=== PATIENT | male | born 1950 | race Caucasian/White ===

== ENCOUNTER 2018-09-02 01:13 | Outpatient (CLI) | payer MEDICARE, SELFPAY ==
[2018-09-02 12:32] LABS: Hemoglobin A1C 6.1 % (4.5-6.2)
== END 2018-09-02 01:33 ==
PROVIDERS: PCP Family Medicine; Visit Provider Family Medicine
DX: E11.9 Type 2 diabetes mellitus without complications (principal)
CPT/HCPCS: 83036

== ENCOUNTER 2019-03-03 02:00 | Outpatient (CLI) | payer MEDICARE, SELFPAY ==
[2019-03-03 11:05] LABS: CREATININE 0.98 mg/dL (0.70-1.30)
[2019-03-03 11:18] LABS: Hemoglobin A1C 6.7 % (4.5-6.2)
[2019-03-04 12:07] LABS: PSA, Screening 2.4 ng/ml (0-4.5)
== END 2019-03-03 02:20 ==
PROVIDERS: PCP Family Medicine; Visit Provider Family Medicine
DX: E11.9 Type 2 diabetes mellitus without complications (principal); N40.1 Benign prostatic hyperplasia with lower urinary tract symptoms; Z12.5 Encounter for screening for malignant neoplasm of prostate; N13.8 Other obstructive and reflux uropathy
CPT/HCPCS: 84153; 82565; 83036

== ENCOUNTER 2019-09-01 02:22 | Outpatient (CLI) | payer MEDICARE, SELFPAY ==
[2019-09-01 12:08] LABS: Hemoglobin A1C 8.1 % (4.5-6.2)
== END 2019-09-01 02:42 ==
PROVIDERS: PCP Family Medicine; Visit Provider Family Medicine
DX: E11.9 Type 2 diabetes mellitus without complications (principal)
CPT/HCPCS: 36415; 83036

== ENCOUNTER 2019-09-11 09:51 | Outpatient (CLI) | payer MEDICARE, SELFPAY ==
[2019-09-11 12:49] LABS: Calculated LDL 172 mg/dL; Cholesterol 246 mg/dL (<200); HDL Cholesterol 33 mg/dL (40-60); Magnesium 1.7 mg/dL (1.8-2.4); Potassium 4.4 mmol/L (3.5-5.1); Triglyceride 206 mg/dL (<150)
[2019-09-11 13:02] LABS: COMMENT (LAB VIEW ONLY) 173.91 mg/dL
[2019-09-11 13:12] LABS: Microalb ug/mg Crea 8.8 ug/mg Cr
== END 2019-09-11 10:11 ==
PROVIDERS: PCP Family Medicine; Visit Provider Family Medicine
DX: I10 Essential (primary) hypertension (principal); E11.9 Type 2 diabetes mellitus without complications; K21.9 Gastro-esophageal reflux disease without esophagitis
CPT/HCPCS: 36415; 80061; 82043; 82570; 83735; 84132

== ENCOUNTER 2019-12-10 02:25 | Outpatient (CLI) | payer MEDICARE, SELFPAY ==
[2019-12-10 11:14] LABS: Hemoglobin A1C 6.7 % (3.8-5.6)
== END 2019-12-10 02:45 ==
PROVIDERS: PCP Family Medicine; Visit Provider Family Medicine
DX: E11.9 Type 2 diabetes mellitus without complications (principal)
CPT/HCPCS: 36415; 83036

== ENCOUNTER 2021-03-08 01:26 | Outpatient (CLI) | payer MEDICARE, SELFPAY ==
--- NOTE | 2021-03-08 07:15 | DI.RAD_ITS ---
Exam(s) XR HIP PELVIS ADULT BL EXAM: XR HIP PELVIS ADULT BL CLINICAL HISTORY: hip pain and low back pain, M25.551, M25.552. TECHNIQUE: 2D digital imaging was performed. COMPARISON: No exams were available for comparison FINDINGS: Examination is limited due to patient body habitus. Sfzl-fc-jubjhyjk degenerative changes are seen in the hips bilaterally with joint space narrowing and acetabular spurring. No acute fracture, dislocation or lytic or sclerotic lesion is seen. The sacr oiliac joints and symphysis pubis are unremarkable. There are degenerative changes seen in the lumbo sacral spine. Soft tissues are unremarkable. IMPRESSION: Osteoarthritis of the hips bilaterally. DATA REPOSITORY: RADIATION DOSE DELIVERED:
--- NOTE | 2021-03-08 07:15 | DI.RAD_ITS ---
Exam(s) XR LUMBAR SPINE COMPLETE EXAM: XR LUMBAR SPINE COMPLETE CLINICAL HISTORY: low back pain, M54.9. TECHNIQUE: 2D digital imaging was performed. COMPARISON: No exams were available for comparison FINDINGS: There are 5 lumbar type vertebral bodies. There is normal alignment. No spondylolysis or spondyloli sthesis. Disc space narrowing is seen at T12-L1 and L4-L5. Endplate osteophytes are seen at multipl e levels of the lumbar spine. There are degenerative changes of the facets seen at L4-5 and L5-S1. No acute fracture or subluxation is seen. Atherosclerosis is present. IMPRESSION: Moderate degenerative changes in the lumbar spine. DATA REPOSITORY: RADIATION DOSE DELIVERED:
== END 2021-03-08 01:46 ==
PROVIDERS: PCP Family Medicine; Visit Provider Family Medicine
DX: M54.5 Low back pain (principal); M51.36 Other intervertebral disc degeneration, lumbar region; M47.816 Spondylosis without myelopathy or radiculopathy, lumbar region; M25.551 Pain in right hip; M25.552 Pain in left hip
CPT/HCPCS: 73521; 72110

== ENCOUNTER 2021-08-04 10:49 | Outpatient (CLI) | payer MEDICARE, SELFPAY ==
[2021-08-04 20:20] LABS: COVID-19 RT-PCR UVMMC Result Negative (Negative)
== END 2021-08-04 10:50 | disposition home or self-care (01) ==
LOC: LBO 10:51
PROVIDERS: PCP Family Medicine; Visit Provider Nurse Practitioner Family
DX: Z20.822 Contact with and (suspected) exposure to COVID-19 (principal)
CPT/HCPCS: U0003; U0005

== ENCOUNTER 2021-08-17 17:05 | Outpatient (REF) | payer MEDICARE, SELFPAY | END 2021-08-17 17:06 | disposition home or self-care (01) | LOC: LBN 17:05 | PROVIDERS: PCP Family Medicine; Visit Provider Emergency Medicine | DX: N39.0 Urinary tract infection, site not specified (principal); N40.0 Benign prostatic hyperplasia without lower urinary tract symptoms | CPT/HCPCS: 87086 ==

== ENCOUNTER 2021-08-21 16:47 | Outpatient (REF) | payer MEDICARE, SELFPAY | END 2021-08-21 16:48 | disposition home or self-care (01) | LOC: NCHCN 16:47 | PROVIDERS: PCP Family Medicine; Visit Provider Family Medicine | DX: R19.7 Diarrhea, unspecified (principal) | CPT/HCPCS: 87169 ==

== ENCOUNTER 2021-09-01 04:22 | Outpatient (CLI) | payer MEDICARE, SELFPAY ==
[2021-09-01 13:05] LABS: Hemoglobin A1C 6.5 % (<5.7)
[2021-09-01 22:45] LABS: PSA, Diagnostic 2.9 ng/mL (0.0-6.5)
== END 2021-09-01 04:23 | disposition home or self-care (01) ==
LOC: LOS 04:22
PROVIDERS: Emergency Medicine; PCP Family Medicine; Visit Provider Family Medicine
DX: E11.9 Type 2 diabetes mellitus without complications; C61 Malignant neoplasm of prostate; I10 Essential (primary) hypertension
CPT/HCPCS: 36415; 82565; 83036; 84153

== ENCOUNTER → 2021-10-24 10:46 | Outpatient (BNVA) | payer MEDICARE, SELFPAY | PROVIDERS: PCP Family Medicine; Referring Provider Family Medicine; Visit Provider Nurse Practitioner Gerontology | DX: N40.1 Benign prostatic hyperplasia with lower urinary tract symptoms (principal); N13.8 Other obstructive and reflux uropathy; E11.9 Type 2 diabetes mellitus without complications; I10 Essential (primary) hypertension | CPT/HCPCS: 99204 ==

== ENCOUNTER → 2022-03-23 00:35 | Outpatient (CLI) | payer MEDICARE, SELFPAY ==
--- NOTE | 2022-03-23 07:11 | DI.MRI_ITS ---
Exam(s) MR LUMBAR SPINE WO EXAM: MR LUMBAR SPINE WO CLINICAL HISTORY: chronic low back pain,m54.50,g89.29. TECHNIQUE: Multiplanar multisequence MRI of the Lumbar spine was performed. COMPARISON: CR XR LUMBAR SPINE COMPLETE from 03/08/2021 FINDINGS: Bones: The last intervertebral disc space is designated the L5/S1 level for the numbering purpose of this examination. The vertebral body heights are well maintained. Alignment is satisfactory. The si gnal characteristics are unremarkable. Cord: The conus tip ends at the T12 level. It is of normal size and signal intensity. T12-L1: No disc herniations or bulges are present. No central spinal canal or neural foraminal stenos is. L1-2: There is a mild diffuse disc bulge. No significant central spinal canal stenosis is seen. There is mild bilateral narrowing of the neural foramen. L2-3: No disc herniations or bulges are present. No central spinal canal or neural foraminal stenosis . L3-4: There is a mild diffuse disc bulge. There are degenerative changes of the facets. No significan t central spinal canal stenosis is seen. Mild narrowing of the neural foramen is seen. L4-5: There is a mild diffuse disc bulge. There are hypertrophic changes of the facets. No significan t central spinal canal stenosis is present. There is mild bilateral neural foraminal stenosis. L5-S1: No disc herniations or bulges are present. There are mild degenerative changes of the facets.N o significant central spinal canal or neural foraminal stenosis is present. Soft tissues: The visualized SI joints and sacrum are well maintained. The paraspinal soft tissues ar e unremarkable. IMPRESSION: Multilevel degenerative changes in the lumbar spine. Mild narrowing of the neural foramen at multiple levels as described above. DATA REPOSITORY:
== END ==
PROVIDERS: PCP Family Medicine; Visit Provider Family Medicine
DX: M47.816 Spondylosis without myelopathy or radiculopathy, lumbar region (principal); M48.061 Spinal stenosis, lumbar region without neurogenic claudication; G89.29 Other chronic pain
CPT/HCPCS: 72148

== ENCOUNTER 2022-03-28 11:38 | Outpatient (CLI) | payer MEDICARE, SELFPAY ==
--- NOTE | 2022-03-28 09:30 | DI.RAD_ITS ---
Exam(s) XR SHOULDER LT COMPLETE 2+V EXAM: XR SHOULDER LT COMPLETE 2+V CLINICAL HISTORY: left shoulder pain TECHNIQUE: COMPARISON: CR XR SHOULDER RT COMPLETE 2+V from 03/28/2022 FINDINGS: Two views were obtained. There appears to be mild narrowing of cartilaginous joint space of the aris ohumeral joint. Mild marginal osteophyte formation noted associated with this joint. Moderate hyper trophic changes at the AC joint. No other significant bony or soft tissue abnormality seen. IMPRESSION: RADIATION DOSE DELIVERED: Total DLP
--- NOTE | 2022-03-28 09:30 | DI.RAD_ITS ---
Exam(s) XR SHOULDER RT COMPLETE 2+V EXAM: XR SHOULDER RT COMPLETE 2+V CLINICAL HISTORY: right shoulder pain TECHNIQUE: COMPARISON: No exams were available for comparison FINDINGS: Two views were obtained. There appears to be mild narrowing of the cartilaginous joint space of the glenohumeral joint. Mild marginal osteophytes noted involving the glenohumeral joint and moderate hy pertrophic changes noted at the AC joint. There is amorphous soft tissue calcification adjacent to insertion of supraspinatus tendon on the hum erus, consistent with a calcific peritendinitis. No other bony or soft tissue abnormality seen. IMPRESSION: RADIATION DOSE DELIVERED: Total DLP
== END 2022-03-28 11:39 | disposition home or self-care (01) ==
LOC: DIORS 11:38
PROVIDERS: PCP Family Medicine; Referring Provider Family Medicine; Visit Provider Student in an Organized Health Care Education/Training Program
DX: M75.51 Bursitis of right shoulder; M75.31 Calcific tendinitis of right shoulder; M75.52 Bursitis of left shoulder; M19.011 Primary osteoarthritis, right shoulder; M19.012 Primary osteoarthritis, left shoulder
CPT/HCPCS: 20610; 99204; 99214; 73030; J1030

== ENCOUNTER → 2022-04-16 12:52 | Outpatient (BNVA) | payer MEDICARE, SELFPAY | PROVIDERS: PCP Family Medicine; Referring Provider Family Medicine; Visit Provider Student in an Organized Health Care Education/Training Program | DX: M70.61 Trochanteric bursitis, right hip (principal); M70.62 Trochanteric bursitis, left hip | CPT/HCPCS: 99214 ==

== ENCOUNTER → 2022-06-18 09:33 | Outpatient (BNVA) | payer MEDICARE, SELFPAY | PROVIDERS: PCP Family Medicine; Referring Provider Family Medicine; Visit Provider Student in an Organized Health Care Education/Training Program | DX: M70.61 Trochanteric bursitis, right hip (principal); M70.62 Trochanteric bursitis, left hip; M16.12 Unilateral primary osteoarthritis, left hip | CPT/HCPCS: 99214 ==

== ENCOUNTER 2022-07-17 03:42 | Outpatient (CLI) | payer MEDICARE, SELFPAY ==
[2022-07-17 12:12] LABS: HCT 43.1 % (40.0-50.0); HGB 15.1 g/dL (13.5-17.5); MCH 29.3 pg (27.0-33.0); MCV 84 fL (80-95); MPV 9.9 fL (8.0-11.0); Platelet Count 213 10^3/uL (130-400); RBC 5.15 10^6/uL (4.36-5.78); RDW 12.3 % (11.8-14.1); WBC 10.21 10^3/uL (4.4-10.8)
[2022-07-17 12:21] LABS: Anion Gap 8.1 mmol/L (3-11); BUN 20 mg/dL (7-18); CO2 26.9 mmol/L (21.0-32.0); Calcium 9.5 mg/dL (8.5-10.1); Chloride 104 mmol/L (98-107); Estimated GFR 80.97 (mL/min/1.73m2); Glucose 181 mg/dL (74-106); Sodium 139 mmol/L (136-145)
[2022-07-18 10:43] LABS: Lyme Ab w Rflx to Lyme Confirm Negative (Negative)
[2022-07-19 21:27] LABS: Anaplasma phagocytophilum Negative (Negative); B. miyamotoi PCR Negative (Negative); Babesia divergens/MO-1 Negative (Negative); Babesia duncani Negative (Negative); Babesia microti Negative (Negative); Ehrlichia chaffeensis Negative (Negative); Ehrlichia ewingii/canis Negative (Negative); Ehrlichia muris eauclairensis Negative (Negative)
== END 2022-07-17 03:43 | disposition home or self-care (01) ==
LOC: LOS 03:42
PROVIDERS: PCP Family Medicine; Visit Provider Family Medicine
DX: I10 Essential (primary) hypertension (principal); R53.83 Other fatigue; W57.XXXA Bitten or stung by nonvenomous insect and other nonvenomous arthropods, initial encounter; T14.8XXA Other injury of unspecified body region, initial encounter
CPT/HCPCS: 36415; 80048; 85027; 87798; 86618

== ENCOUNTER 2022-09-25 08:59 | Outpatient (CLI) | payer MEDICARE, SELFPAY ==
[2022-09-25 13:24] LABS: ALT 30 U/L (16-63); AST 21 U/L (15-37); Albumin 3.7 g/dL (3.4-5.0); Alkaline Phosphatase 122 U/L (46-116); Bilirubin, Total 0.3 mg/dL (0.2-1.0); Calculated LDL 120 mg/dL (<100); Cholesterol 202 mg/dL (<200); HDL Cholesterol 46 mg/dL (40-60); Total Protein 7.2 g/dL (6.4-8.2); Triglyceride 180 mg/dL (<150)
[2022-09-25 13:33] LABS: Bilirubin, Direct 0.1 mg/dL (0.0-0.2)
== END 2022-09-25 09:00 | disposition home or self-care (01) ==
LOC: LOS 08:59
PROVIDERS: Absent Provider Family Medicine; PCP Family Medicine; Visit Provider Family Medicine
DX: E78.5 Hyperlipidemia, unspecified (principal); G72.89 Other specified myopathies
CPT/HCPCS: 36415; 80061; 80076

== ENCOUNTER 2022-11-07 13:24 | Outpatient (CLI) | payer MEDICARE, SELFPAY ==
--- NOTE | 2022-11-07 11:15 | DI.RAD_ITS ---
Exam(s) XR KNEE LT 3V AP,LAT,PADDY EXAM: XR KNEE LT 3V AP,LAT,PADDY CLINICAL HISTORY: left knee pain, M25.562. TECHNIQUE: 2D digital imaging was performed of the left knee. Three images were obtained. AP, late ral and PA tunnel views were obtained. COMPARISON: No exams were available for comparison FINDINGS: BONES: No acute fracture is present. No bony destructive lesion is seen. There is a small enthesophy te at the superior patella. JOINTS: The knee is normally aligned. There is a small joint effusion. There is moderate narrowing i n the medial femoral tibial joint. Periarticular spurring is seen involving the medial femoral tibia l and patellofemoral joint. Subchondral cysts are seen in the medial femoral tibial joint. SOFT TISSUE: Atherosclerosis is present. IMPRESSION: Osteoarthritis of the knee. DATA REPOSITORY: RADIATION DOSE DELIVERED:
== END 2022-11-07 13:44 ==
LOC: DI 13:24
PROVIDERS: PCP Family Medicine; Visit Provider Family Medicine
DX: M17.12 Unilateral primary osteoarthritis, left knee (principal)
CPT/HCPCS: 73562

== ENCOUNTER 2022-12-26 13:19 | Outpatient (REF) | payer MEDICARE, SELFPAY ==
[2022-12-26 14:21] LABS: COMMENT (LAB VIEW ONLY) 152.56 mg/dL; Microalb ug/mg Crea 17.7 ug/mg Cr
== END 2022-12-26 13:20 | disposition home or self-care (01) ==
LOC: LBN 13:19
PROVIDERS: PCP Family Medicine; Visit Provider Family Medicine
DX: E11.9 Type 2 diabetes mellitus without complications (principal)
CPT/HCPCS: 82043; 82570

== ENCOUNTER → 2022-12-31 10:12 | Outpatient (BNVA) | payer MEDICARE, SELFPAY | PROVIDERS: PCP Family Medicine; Referring Provider Family Medicine; Visit Provider Student in an Organized Health Care Education/Training Program | DX: M17.12 Unilateral primary osteoarthritis, left knee (principal) | CPT/HCPCS: 99213 ==

== ENCOUNTER 2023-01-01 01:11 | Outpatient (CLI) | payer MEDICARE, SELFPAY ==
--- NOTE | 2023-01-01 07:00 | DI.NM_ITS ---
APPROVED REPORT Exam: Pharmacologic Patient Location: Out-Patient Room/Bed: Stress Nurse: Aminata Watson RN Ordering Provider:OLLIE MISHRA, Contact Number: [phone] BMI: 42.71 Baseline Rhythm: Sinus Rhythm Indications: Chest pain Medical History Medical History: DM 2, HTN, Afib, morbid obesity, KEITH, former smoker Cardiac Medications: Metformin, lisinopril, furosemide, diltiazem, atorvastatin, eliquis Allergies: cipro, iodinated contrast Cardiac Risk Factors: HLD, HTN, family hx, diabetes, former smoker, obesity Previous Cardiac Procedures: None Pretest Chest Pain Characteristics: None Exercise History: Sedentary Physical Disabilities: Hips, Back Lung Sounds: Clear to auscultation Heart Sounds: Regular Stress Test Details Test: Pharmacologic stress testing performed using 0.4 mg of regadenoson per 5 mL given IV over 10 s econds. Reason for pharmacologic stress test: physical limitation. Nuclear Acquisition: Rest Tc-99m/Stress Tc-99m 1 day Rest Isotope: Tc-99m Sestamibi. Dose: 14.0 Date: 01/01/2023 Injection Time: 0925 Stress Isotope: Tc-99m Sestamibi. Dose: 45.0 Date: 01/01/2023 Injection Time: 1152 HR Resting HR Supine: 80 bpm Max Heart Rate (APMHR): 149.669754 bpm Target HR (85% APMHR): 126.680932 bpm Max HR Achieved: 97 bpm % of APMHR: 65.10 Recovery HR: 86 bpm BP Resting BP Supine: 160/76 mmHg Max BP: 160/76 mmHg Recovery BP: 132/66 mmHg Comment: Patient noted and verbalized being very anxious at time of BP assessment. ECG Resting ECG: Sinus Rhythm Ectopy: None Stress ECG: Sinus Rhythm ST Change: No significant ST segment changes noted Arrhythmia: Rare PAC Recovery ECG: Sinus Rhythm Recovery ST Change: No significant ST segment changes noted Recovery Arrhythmia: None Clinical Stress Symptoms: None Rate Pressure Product: [id number] Stress ECG Conclusion 1. Resting electrocardiogram was within normal limits 2. Patient underwent testing using pharmacologic stress with regadenoson 3. Peak heart rate achieved was 65% of predicted for age 4. The electrocardiographic portion of the test was nondiagnostic due to inadequate heart rate 5. See MPI report Stress Test Summary STAGE HR BP SpO2 Symptoms NOTES Supine 80 160/76 1 min post Lexiscan injection 94 152/68 97 3 min post Lexiscan injection 88 138/66 95 6 min post Lexiscan injection 86 132/66 No symptoms verbalized. MPI Conclusion Myocardial perfusion is normal. There is no ischemia or evidence of prior infarction EF is 58% with normal wall motion Radiologist Interpretation Radiologist agrees with [employer]'s Interpretation. Radiologist Interpretation by: Venus Hernandez MD Interpretation Date/Time: 01/01/2023 16:58:05
[2023-01-01] MEDS: Regadenoson 0.4 MG/5 ML SYR IVP (11:08)
== END 2023-01-01 01:31 ==
LOC: DI 01:11
PROVIDERS: PCP Family Medicine; Visit Provider Family Medicine
DX: R07.9 Chest pain, unspecified (principal)
CPT/HCPCS: 78452; 93016; 93018; 93017; J2785

== ENCOUNTER 2023-11-26 08:24 | Outpatient (CLI) | payer MEDICARE, SELFPAY ==
[2023-11-26 12:26] LABS: AST 13 U/L (15-37); Calculated LDL 77 mg/dL (<100); Cholesterol 141 mg/dL (<200); HDL Cholesterol 40 mg/dL (40-60); Triglyceride 124 mg/dL (<150)
== END 2023-11-26 08:25 | disposition home or self-care (01) ==
LOC: LOS 08:24
PROVIDERS: PCP Family Medicine; Referring Provider Family Medicine; Visit Provider Family Medicine
DX: E78.5 Hyperlipidemia, unspecified (principal); K76.0 Fatty (change of) liver, not elsewhere classified
CPT/HCPCS: 36415; 80061; 84450

== ENCOUNTER → 2023-12-30 08:22 | Outpatient (BNVA) | payer MEDICARE, SELFPAY | PROVIDERS: PCP Family Medicine; Referring Provider Family Medicine; Visit Provider Nurse Practitioner Gerontology | DX: N40.1 Benign prostatic hyperplasia with lower urinary tract symptoms (principal); R39.89 Other symptoms and signs involving the genitourinary system | CPT/HCPCS: 51798; 99214 ==

== ENCOUNTER 2024-03-31 03:22 | Outpatient (CLI) | payer MEDICARE, SELFPAY ==
[2024-03-31 19:35] LABS: PSA, Diagnostic 3.3 ng/mL (<=6.5)
== END 2024-03-31 03:23 | disposition home or self-care (01) ==
LOC: LOS 03:22
PROVIDERS: PCP Family Medicine; Visit Provider Nurse Practitioner Gerontology
DX: N40.1 Benign prostatic hyperplasia with lower urinary tract symptoms (principal); R39.9 Unspecified symptoms and signs involving the genitourinary system
CPT/HCPCS: 36415; 84153

== ENCOUNTER → 2024-04-07 08:49 | Outpatient (BNVA) | payer MEDICARE, SELFPAY | PROVIDERS: PCP Family Medicine; Visit Provider Nurse Practitioner Gerontology | DX: R35.0 Frequency of micturition (principal); R30.0 Dysuria; N40.1 Benign prostatic hyperplasia with lower urinary tract symptoms | CPT/HCPCS: 51798; 99214 ==

== ENCOUNTER → 2024-10-06 09:52 | Outpatient (BNVA) | payer MEDICARE, SELFPAY | PROVIDERS: PCP Family Medicine; Visit Provider Nurse Practitioner Gerontology | DX: R35.0 Frequency of micturition (principal); N40.1 Benign prostatic hyperplasia with lower urinary tract symptoms | CPT/HCPCS: 51798; 99214 ==

== ENCOUNTER 2025-03-02 02:23 | Outpatient (CLI) | payer MEDICARE, SELFPAY ==
[2025-03-02 12:25] LABS: Anion Gap 8.1 mmol/L (3-11); BUN 21 mg/dL (7-18); CO2 25.9 mmol/L (21.0-32.0); CREATININE 0.9 mg/dL (0.70-1.30); Calcium 9.2 mg/dL (8.5-10.1); Chloride 106 mmol/L (98-107); Estimated GFR 90.18 (mL/min/1.73m2); Glucose 186 mg/dL (74-106); Potassium 3.9 mmol/L (3.5-5.1); Sodium 140 mmol/L (136-145)
[2025-03-02 12:31] LABS: COMMENT (LAB VIEW ONLY) 105.29 mg/dL; Microalb ug/mg Crea 7.1 ug/mg Cr
== END 2025-03-02 02:24 | disposition home or self-care (01) ==
LOC: LOS 02:23
PROVIDERS: PCP Family Medicine; Visit Provider Family Medicine
DX: E11.9 Type 2 diabetes mellitus without complications (principal); E87.1 Hypo-osmolality and hyponatremia
CPT/HCPCS: 36415; 80048; 82043; 82570

== ENCOUNTER → 2025-04-07 09:22 | Outpatient (BNVA) | payer MEDICARE, SELFPAY | PROVIDERS: PCP Family Medicine; Visit Provider Nurse Practitioner Gerontology | DX: N40.1 Benign prostatic hyperplasia with lower urinary tract symptoms (principal); R30.0 Dysuria; S30.812A Abrasion of penis, initial encounter; R35.0 Frequency of micturition; R39.9 Unspecified symptoms and signs involving the genitourinary system; X58.XXXA Exposure to other specified factors, initial encounter; B95.2 Enterococcus as the cause of diseases classified elsewhere | CPT/HCPCS: 99214; 81002; 51798 ==

== ENCOUNTER 2025-04-07 11:06 | Outpatient (REF) | payer MEDICARE, SELFPAY | END 2025-04-07 11:07 | disposition home or self-care (01) | LOC: LBN 11:06 | PROVIDERS: PCP Family Medicine; Visit Provider Urology | DX: R39.9 Unspecified symptoms and signs involving the genitourinary system (principal); R82.89 Other abnormal findings on cytological and histological examination of urine | CPT/HCPCS: 87077; 87086; 87186 ==

== ENCOUNTER 2025-04-29 13:44 | Outpatient (REF) | payer MEDICARE, SELFPAY ==
[2025-04-29 14:06] LABS: Glucose Negative (Negative)
== END 2025-04-29 13:45 | disposition home or self-care (01) ==
LOC: LBN 13:44
PROVIDERS: PCP Family Medicine; Visit Provider Nurse Practitioner Gerontology
DX: R30.0 Dysuria (principal)
CPT/HCPCS: 81003; 87086

== ENCOUNTER → 2025-09-24 13:54 | Outpatient (BNVA) | payer MEDICARE, SELFPAY | PROVIDERS: PCP Family Medicine; Referring Provider Family Medicine; Visit Provider Urology | DX: R30.0 Dysuria (principal); R39.9 Unspecified symptoms and signs involving the genitourinary system; E11.9 Type 2 diabetes mellitus without complications | CPT/HCPCS: 99213; 81002 ==

== ENCOUNTER 2025-09-24 14:08 | Outpatient (REF) | payer MEDICARE, SELFPAY | END 2025-09-24 14:09 | disposition home or self-care (01) | LOC: LBN 14:08 | PROVIDERS: PCP Family Medicine; Visit Provider Urology | DX: R30.0 Dysuria (principal) | CPT/HCPCS: 87086 ==